=== PATIENT | female | born 1985 | race Caucasian/White ===

== ENCOUNTER 2017-11-23 16:45 | Emergency (ER) | payer OTHER ==
[~2017-11-23] VITALS: Ht 152.4 cm; Wt 72.0 kg
[2017-11-23] MEDS ORDERED: INDOCIN50 MG PO (18:02)
[2017-11-23 18:35] VITALS: BP 107/87
== END 2017-11-23 18:35 | disposition home or self-care (01) ==
LOC: EME 16:45
DX: M79.642 Pain in left hand (principal); M25.532 Pain in left wrist; M79.602 Pain in left arm
CPT/HCPCS: 99281; 99283